=== PATIENT | female | born 1950 | race African-American/Black ===

== ENCOUNTER → 2016-07-02 | Outpatient (CLI) | payer OTHER ==
[~2016-07-02] MED LIST: AZITHROMYCIN 2250 MG PO; BACTRIM DS TAB1 EACH PO; CIPROFLOXACIN500 M1 PO; IBUPROFEN 600600 M1 PO; LISINOPRIL-HCT1 EAC2 PO; NORCO 5-325 TA1 EACH PO; PANTOPRAZOLE SO40 M1 PO; PHENERGAN 25 MG25 M1 PO; PRADAXA150 MG PO; PYRIDIUM200 MG PO; SORINE 80 MG TA80 M1 PO; TESSALON PERLE100 MG PO; ZESTORETIC 20-1 EAC1 PO
== END ==
LOC: RAD 14:35
DX: R06.02 Shortness of breath (principal)

== ENCOUNTER → 2019-07-22 | Outpatient (CLI) | payer MEDICARE, OTHER ==
[~2019-07-22] MED LIST changes: +NORCO 5-325 TA1 EAC1 PO
== END ==
LOC: SJCVC 14:27
DX: I48.0 Paroxysmal atrial fibrillation (principal); I10 Essential (primary) hypertension; E78.5 Hyperlipidemia, unspecified

== ENCOUNTER 2019-07-27 08:54 | Emergency (ER) | payer MEDICARE, OTHER ==
[~2019-07-27] VITALS: Ht 157.5 cm; Wt 63.5 kg
[~2019-07-27 08:54] MED LIST changes: -NORCO 5-325 TA1 EAC1 PO
[2019-07-27] MEDS ORDERED: NORCO 5-325 TA1 EAC1 PO (10:17)
[2019-07-27 10:27] VITALS: BP 162/84
== END 2019-07-27 10:28 | disposition home or self-care (01) ==
LOC: ER 08:54
DX: S61.313A Laceration without foreign body of left middle finger with damage to nail, initial encounter (principal); I10 Essential (primary) hypertension; M19.90 Unspecified osteoarthritis, unspecified site; Z98.51 Tubal ligation status; W26.8XXA Contact with other sharp object(s), not elsewhere classified, initial encounter; Y93.89 Activity, other specified; Y92.89 Other specified places as the place of occurrence of the external cause; Y99.8 Other external cause status

== ENCOUNTER 2020-11-10 13:10 | Emergency (ER) | payer MEDICARE, OTHER ==
[~2020-11-10] VITALS: Ht 162.6 cm; Wt 65.8 kg
[~2020-11-10 13:10] MED LIST changes: +NORCO 5-325 TA1 EAC1 PO
[2020-11-10 13:44] LABS: HEMATOCRIT 44.7 % (37.0-47.0); MCH 29.3 pg (26.0-34.0); MCHC 33.6 g/dL (28.0-37.0)
[2020-11-10 13:46] LABS: BASOPHILS 0.6 % (0.0-2.0); EOSINOPHILS 0.1 % (0.0-3.0); LYMPHOCYTES 28.2 % (24.0-44.0); MCV 87.1 fL (80.0-100.0); MONOCYTES 10.2 % (1.0-8.0); POLYS 60.9 % (36.0-66.0); RBC 5.14 mil/uL (4.20-5.00); RDW 13.9 % (10.5-14.5); WBC 3.3 thou/uL (4.0-11.0)
[2020-11-10 13:54] LABS: ANION GAP 9 mmol/L (7-16); BUN 17 mg/dL (7-18); CALCIUM 8.3 mg/dL (8.5-10.1); CHLORIDE 101 mmol/L (98-107); CO2 27 mmol/L (21-32); CREATININE 1.1 mg/dL (0.6-1.0); GLUCOSE 116 mg/dL (74-106); POTASSIUM 3.7 mmol/L (3.5-5.1); SODIUM 137 mmol/L (136-145)
[2020-11-10 14:05] LABS: ALBUMIN 3.3 g/dL (3.4-5.0); SGOT 34 U/L (15-37); SGPT 18 U/L (30-65); TOTAL BILIRUBIN 1.2 mg/dL (0.2-1.0); TOTAL PROTEIN 7.9 g/dL (6.4-8.2); TROPONIN-I <0.06 ng/mL (<0.06)
[2020-11-10 14:08] LABS: URINE BILIRUBIN NEGATIVE (Negative); URINE BLOOD 2+ (Negative); URINE COLOR YELLOW; URINE GLUCOSE-RANDOM* NEGATIVE (Negative); URINE KETONES TRACE (Negative); URINE LEUKOCYTES-REFLEX NEGATIVE (Negative); URINE PROTEIN (DIPSTICK) 2+ (Negative); URINE SPECIFIC GRAVITY >= 1.030 (1.005-1.035); URINE UROBILINOGEN 0.2 E.U./dl (0.2-1.0)
[2020-11-10 14:15] LABS: URINE CLARITY SL HAZY; URINE NITRITE-REFLEX POSITIVE (Negative)
[2020-11-10 14:25] LABS: SQUAMOUS 4-10 Moderate /LPF (0-3)
[2020-11-10 14:26] LABS: BACTERIA-REFLEX >30 Many /HPF (None Seen); CASTS None Seen /LPF (None Seen); CRYSTALS None Seen /LPF (None Seen); URINE RBC 1-2 Rare /HPF (NONE SEEN); URINE WBC-REFLEX 0-5 Rare /HPF (0-5)
[2020-11-10 15:01] VITALS: BP 154/78
--- NOTE | 2020-11-10 15:12 | EKG ---
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: REINA : 1950 Requested By: Joseph Barker Order Number: [id number] MD: Dusty Gonzalez Measurements Intervals Cameron Rate: 73 P: 62 CO: 143 QRS: -15 QRSD: 75 T: 24 QT: 397 QTc: 438 Interpretive Statements Sinus rhythm Probable left atrial enlargement Abnormal R-wave progression, early transition Left ventricular hypertrophy Compared to ECG 01/27/2016 19:49:24 Supraventricular tachycardia no longer present T-wave abnormality no longer present Electronically Signed On 11-10-2020 15:11:50 CDT by Dusty Gonzalez [email or web address] <ELECTRONICALLY SIGNED> By: Dusty Gonzalez MD, [facility] 11/10/20 1511 1325 1325 Dusty Gonzalez MD, FAC /EPI
[2020-11-10] MEDS ORDERED: TESSALON PERLE100 MG PO (16:36)
[2020-11-10] MEDS ORDERED: ZPAK PO (16:36)
[2020-11-10] MEDS ORDERED: PROAIR HFA8.5 GM INH (16:39)
[2020-11-10 16:41] LABS: PLATELET COUNT 67 thou/uL (150-400)
[2020-11-10 16:42] LABS: LARGE PLATELETS FEW
[2020-11-13] MEDS ORDERED: CEPHALEXIN500 MG PO (11:43)
== END 2020-11-10 16:50 | disposition home or self-care (01) ==
LOC: ER 13:10
PROVIDERS: Nurse Practitioner
DX: U07.1 COVID-19 (principal); N39.0 Urinary tract infection, site not specified; I10 Essential (primary) hypertension; M19.90 Unspecified osteoarthritis, unspecified site; Z98.51 Tubal ligation status